=== PATIENT | female | born 2005 | race Caucasian/White ===

== ENCOUNTER 2023-01-03 08:01 | Outpatient (CLI) | payer OTHER, SELFPAY ==
--- NOTE | 2023-01-03 08:15 | CRLHL7_ITS ---
For Patients: As a result of the Century Cures Act, medical imaging exams and procedure reports are released immediately into your electronic medical record. You may view this report before your referring provider. If you have questions, please contact your health care provider. CLINICAL HISTORY: GENERALIZED ABD PAIN COMPARISON: none TECHNIQUE: Real time sawyer scale imaging and color Doppler analysis was performed of the abdomen. FINDINGS: Sonographic imaging demonstrates normal size and uniform echotexture of the liver. The spleen is of normal size. The pancreas appears normal. The proximal abdominal aorta and IVC appear normal. There is no evidence of ascites. The gallbladder is of normal size and there is no evidence of sludge or stones within the gallbladder lumen. The gallbladder wall measures 2 mm in thickness. The common bile duct measures 5 mm in size within the roseline hepatis. The kidneys appear symmetric. The right kidney measures 9.5 cm in length and the left kidney measures 10.2 cm. There is no evidence of a renal calculus or hydronephrosis. IMPRESSION: Normal abdominal ultrasound. Dictated by Aaron Segura MD @ 01/03/2023 8:46:38 AM (Electronically Signed)
== END 2023-01-03 08:02 | disposition home or self-care (01) ==
LOC: US 08:03
PROVIDERS: PCP Family Medicine; Visit Provider Nurse Practitioner Family
DX: R10.84 Generalized abdominal pain (principal); R74.8 Abnormal levels of other serum enzymes
CPT/HCPCS: 76700

== ENCOUNTER 2023-02-28 09:53 | Outpatient (CLI) | payer OTHER, SELFPAY ==
--- NOTE | 2023-02-28 10:00 | CRLHL7_ITS ---
For Patients: As a result of the Century Cures Act, medical imaging exams and procedure reports are released immediately into your electronic medical record. You may view this report before your referring provider. If you have questions, please contact your health care provider. INDICATION: Chronic sinusitis. TECHNIQUE: Noncontrast CT images acquired through the paranasal sinuses. COMPARISON: CT sinus 01/21/2023. FINDINGS: New small air-fluid levels in the maxillary sinuses. The ethmoid infundibula are widely patent. There is minimal maxillary sinus mucosal thickening. [id number] right and minimal left frontal sinus mucosal thickening. Minimal mucosal thickening in the ethmoid air cells. Minimal mucosal thickening in the right sphenoid sinus. The left sphenoid sinus is clear. The sphenoethmoidal recesses are widely patent. There is 3 mm leftward nasal septal deviation. No nasal cavity masses. The mastoid air cells are clear. IMPRESSION: 1. New small air-fluid levels in the maxillary sinuses can be seen in the setting of acute sinusitis. 2. Minimal paranasal sinus mucosal disease. 3. Mild leftward nasal septal deviation. Please note that all CT scans at this facility use dose modulation, iterative reconstruction, and/or weight-based dosing when appropriate to reduce radiation dose to as low as reasonably achievable. Dictated by Louis Roman MD @ 02/28/2023 2:28:04 PM (Electronically Signed)
== END 2023-02-28 09:54 | disposition home or self-care (01) ==
LOC: CT 09:53
PROVIDERS: PCP Family Medicine; Visit Provider Otolaryngology
DX: J32.9 Chronic sinusitis, unspecified (principal); J34.2 Deviated nasal septum
CPT/HCPCS: 70486

== ENCOUNTER 2023-03-29 10:13 | Day surgery (SDC) | payer OTHER, SELFPAY ==
[2023-03-29] VITALS (14 sets, daily range): BP systolic 110–151; BP diastolic 62–96; PULSE 70–99; RESP 12–16; TEMP 36.6–37.2; O2SAT 95–98; BMI 24.0
[2023-03-29] MEDS: LACTATED RINGERS 1000 ML 1,000 ML 100 ML IV (10:25)
[2023-03-29] MEDS: SODIUM CHLORIDE 0.9 % (FLUSH) 10 ML SYRINGE IVF (10:25)
[2023-03-29 10:30] LABS: Ur HCG Qualitative* Negative (Negative)
[2023-03-29] MEDS: OXYMETAZOLINE 0.05% NASAL SPRAY 2 SPRAY NOSTRIL-B (11:57)
[2023-03-29] MEDS: COCAINE HCL 4 % 4 ML SOLUTION NOSTRIL-B (13:10)
[2023-03-29] MEDS: BUPIVACAINE 0.5%/EPINEPHRINE 0.9 MG (30.9 ML) INJECTION (13:10)
[2023-03-29] MEDS: MUPIROCIN 1 GM PACKET 1 APPLIC TOPICAL (13:10)
--- NOTE | 2023-03-29 13:12 | W.ANESCHARGE ---
Anesthesia Charges Start Date/Time Anesthesia Start Date: 03/29/23 Anesthesia Start Time: 12:29 Stop Date/Time Anesthesia Stop Date: 03/29/23 Anesthesia Stop Time: 13:19
--- NOTE | 2023-03-29 13:17 | W.ANESCHARGE ---
Anesthesia Charges Start Date/Time Anesthesia Start Date: 03/29/23 Anesthesia Start Time: 12:29 Stop Date/Time Anesthesia Stop Date: 03/29/23 Anesthesia Stop Time: 13:19
--- NOTE | 2023-03-29 13:19 | W.PM.ENTPROC ---
Procedure Note Date of procedure: 03/29/23 Procedure: Preoperative diagnosis nasal obstruction deviated septum inferior turbinate hypertrophy right middle turbinate hypertrophy adenoid hypertrophy nasal headache, recurrent maxillary sinusitis bilateral, inferior turbinate hypertrophy Postoperative diagnosis same Procedure adenoidectomy, septoplasty, endoscopic right middle turbinate new bullosa resection, submucous resection bilateral inferior turbinate endoscopic bilateral maxillary antrostomies with tissue removal utilizing image guidance Under general trach anesthesia patient was prepped draped usual fashion. The McIvor mouth gag was inserted the tongue retracted forward. The adenoid pad was removed with suction cautery utilizing indirect visualization with laryngeal mirror. There were no submucous clefts. The nose was injected decongested image guidance system registered. A right hemitransfixion incision was made bilateral anterior posterior tunnels were created. A vertical incision was made the cartilage from the bone with a Wendy dissector. The posterior deflected portions of septal bone were resected. Two pieces were trimmed returned to intraseptal space. The hemitransfixion was closed with 2 4-0 chromic sutures Stab incision was made in the anterior of the right inferior turbinate a tunnel created with a [place] dissector. New bone was outfractured a conservative anterior submucous resection performed. The Coblation was used for hemostasis and to cauterize intramurally This was repeated on the left side in identical fashion. The right middle turbinate new bullosa was infractured with a Wendy dissector then crushed with the [facility] forceps. Silastic stents were secured 3-0 nylon and Merocel packing coated in Bactroban was placed in each side the nose. The patient procedure well was taken recovery in satisfactory condition. Blood loss less than 10 mL. Surgeon: Tucker Devlin MD
[2023-03-29] MEDS: OXYCODONE 5 MG TABLET PO (14:34)
--- NOTE | 2023-03-29 15:02 | SUR.PHASEII ---
Patient tolerated ice water, ice chips, apple juice, bread and butter, and applesauce. Patient and father verbalized understanding of discharge instructions and readiness to be discharged home.
== END 2023-03-29 15:26 | disposition home or self-care (01) ==
LOC: OR 10:13
PROVIDERS: Anesthesiology; PCP Family Medicine; Visit Provider Otolaryngology
PROC: (CPT 31231; principal; 2023-03-29 11:30)
PROC: (CPT 42831; 2023-03-29 11:30)
DX: J34.2 Deviated nasal septum (principal); J34.3 Hypertrophy of nasal turbinates; J35.2 Hypertrophy of adenoids; R51.9 Headache, unspecified; J32.0 Chronic maxillary sinusitis
CPT/HCPCS: 42831; 30520; 30140; 31267; 31240; 00160; 81025; 88305; A9270; J0330; J1100; J2405; J2704; J3010; J7120

== ENCOUNTER 2023-06-29 02:19 | Emergency (ER) | payer OTHER, SELFPAY ==
[2023-06-29 02:27] VITALS: BP 131/82; PULSE 125; RESP 20; TEMP 37.4; O2SAT 99; BMI 23.0
[2023-06-29 02:43] LABS: Appearance Urine Clear (Clear); Bilirubin Urine Negative (Negative); Blood Urine Negative (Negative); Color Urine Yellow (Yellow); Glucose Urine Negative (Negative); Ketones Urine Negative (Negative); Leukocyte Esterase Urine Negative (Negative); Nitrite Urine Negative (Negative); Protein Urine Negative (Negative); Specific Gravity Urine 1.015 (1.000-1.030); Urobilinogen Urine 0.2 (0.2-1.0)
[2023-06-29 02:47] LABS: RBC Urine 0-2 (0-2); Squamous Epithelial Cell Urine Few (None-Few); Ur HCG Qualitative* Negative (Negative); WBC Urine 0-2 (0-5)
--- NOTE | 2023-06-29 02:52 | ED.GENADULT ---
HPI - General Adult General Chief complaint: Abdominal Pain Stated complaint: Abdominal Pain Time Seen by Provider: 06/29/23 02:26 Source: patient Mode of arrival: ambulatory Limitations: no limitations History of Present Illness HPI narrative: 17-year-old female with described history of what sounds like irritable bowel syndrome in the past presents the emergency department for evaluation of abdominal pain for the past 6 hours. Pain is diffusely through the abdomen may localized on the bilateral flank a little more. Initially started as some mild dysuria earlier today with no hematuria. No back logical changes. Pain started in the lower mid back around noon, became nauseated around 5:00 p.m.. Tried to lay down after 90 minutes and then woke with worsening pain at around 7:00 p.m. mainly in the bilateral flank may be a little more in the right. She started having some indigestion, stomach cramping and then had several loose stools. She has a supply of Zofran for her irritable bowel symptoms, she took this states that it may have helped the nausea little bit but certainly did not help with the abdominal pain. She did try some ibuprofen about 4-1/2 hours ago with no significant improvement in symptoms. She says she feels weak and a little drowsy. No trauma or injury. No bloody stools, has not vomited. She is on day 5 of an antibiotic for her sinusitis. She believes that she has been on that particular antibiotic in the past and has not had any difficulty tolerating it. No known ill contacts, no pertinent travel. No trauma. Pain is achy, does worsen in crampy waves. Denies chance of . Past medical history notable for depression, anxiety, recurrent sinus infections. Reports that she had sinus surgery in March, . Denies antibiotic allergies. Medication list appropriate per her report. Nonsmoker. ROS notable for the GI, generalized and urinary symptoms as described above only, otherwise denies times 12 systems. Related Data Home Medications Medication Instructions Recorded Confirmed adapalene 0.3 % topical gel 1 applic topical HS PRN 01/15/22 06/29/23 drospirenone 3 mg-ethinyl 1 tab PO DAILY 01/15/22 06/29/23 estradiol 0.03 mg tablet sertraline 100 mg tablet 100 mg PO DAILY 01/15/22 06/29/23 hydroxyzine HCl 25 mg tablet 25 mg PO Q6H PRN 03/27/23 06/29/23 ondansetron 4 mg disintegrating 4 mg PO Q8H PRN 06/29/23 06/29/23 tablet Previous Rx's Medication Instructions Recorded cefuroxime axetil 500 mg tablet 500 mg PO BID #28 tabs 05/01/23 ondansetron 4 mg disintegrating 4 mg PO Q6H PRN nausea and 06/29/23 tablet vomiting #14 tabs Allergies Allergy/AdvReac Type Severity Reaction Status Date / Time No Known Drug Allergies Allergy Verified 06/29/23 02:30 [facility] Medical History Gastroenteritis ?K52.9 - Noninfective gastroenteritis and colitis, unspecified (ICD-10) Chest pain ?R07.9 - Chest pain, unspecified (ICD-10) Generalized anxiety disorder ?F41.1 - Generalized anxiety disorder (ICD-10) Sinusitis ?J32.9 - Chronic sinusitis, unspecified (ICD-10) Social History Smoking Status: Never smoker How often do you have a drink containing alcohol: never AUDIT-C Alcohol total score: 0 Non-prescribed substance use: denies use Caffeine: Yes Exam Const: Vital Signs, click to edit/add: Vital Signs - 24 hr 06/29/23 02:27 Temperature 99.3 F Pulse Rate [Right Pulse Oximeter] 125 H Respiratory Rate 20 Blood Pressure [Ri ght Upper Arm] 131/82 Pulse Oximetry 99 Oxygen Delivery Me thod Room Air Documenting provider has reviewed patient's vital signs: yes General appearance: well kempt HENMT: Common normals: normocephalic, moist oral mucous membranes and oropharynx normal Head and scalp: normocephalic Face and sinus: normal facial exam Eye: Common normals: conjunctivae normal General eye: normal appearance of both eyes Conjunctiva: conjunctiva(e) normal Neck & C-Spine: Common normals: full ROM and no lymphadenopathy Resp: Common normals: normal respiratory effort, no use of accessory muscles and clear to auscultation bilaterally Effort & inspection: able to speak in complete sentences Auscultation: clear to auscultation bilaterally Cardio: Common normals: regular rate, regular rhythm, S1 normal heart sound, S2 normal heart sound and no murmurs Rate: regular rate Rhythm: regular rhythm Heart sounds: S1 normal and S2 normal GI: Common normals: Normal to inspection, nondistended, normoactive bowel sounds present, soft to palpation, no hepatosplenomegaly and no masses Palpation: soft and no hepatosplenomegaly Other: Diffusely tender. It does not really localize any area but seems a little more predominant in the lower abdomen than the upper. : Common normals: no CVA tenderness Bladder/kidney exam: no CVA tenderness Back & Pelvis: Common normals: no CVA tenderness and thoracic and lumbar spine normal to inspection Extremity: Common normals: normal to inspection, normal capillary refill and no pedal edema Psych: Common normals: speech normal Appearance: well kempt Attitude: calm and engaged Speech: normal speech Mood and affect: euthymic mood Insight: insight good Judgement: judgment good Skin: Common normals: no rashes or lesions noted General skin exam: no rashes or lesions noted Course Course ED Course: 17-year-old female with diffuse abdominal pain, no fever, diarrhea and nausea suspicious for gastroenteritis. No rebound tenderness, guarding. She is mildly tachycardic but I think that is multifactorial likely from some early dehydration, anxiety. She is not hypotensive. Differential diagnosis also includes kidney stone, urinary tract infection, pyelonephritis, pancreatitis, bowel obstruction, colitis, appendicitis, gallbladder disease, among others. Recommended basic labs, L of LR, 4 of Zofran and 15 of Toradol. Start with urinalysis and test. Await findings. Reevaluation(s) Time of Reevaluation #1: 03:49 Reevaluation #1: Patient reports that she is not feeling any better but, she has not had any vomiting. She is tolerating water with no difficulty. She has had a formed stool. Labs are very reassuring. I do not recommend CT. Counseled patient on alarm symptoms. This is likely a viral gastroenteritis and will take a few days to resolve. Alarm symptoms reviewed that would warrant ED presentation. Symptomatic control with Tylenol, ibuprofen, Zofran. New prescription for Zofran sent to her pharmacy. Continue antibiotic for now, I do not think this is the main contributing factor but is certainly possible. Return to ED if worsening. Vital Signs Vital signs: Initial Vital Signs Temperature 99.3 F 06/29/23 02:27 Temperature Source Temporal Artery Scan 06/29/23 02:27 Pulse Rate 125 H 06/29/23 02:27 Respiratory Rate 20 06/29/23 02:27 Blood Pressure 131/82 06/29/23 02:27 Blood Pressure Mean 98 06/29/23 02:27 Blood Pressure Position Sitting 06/29/23 02:27 Pulse Oximetry 99 06/29/23 02:27 Oxygen Delivery Method Room Air 06/29/23 02:27 Vital Signs Temperature 99.3 F 06/29/23 02:27 Pulse Rate 125 H 06/29/23 02:27 Respiratory Rate 20 06/29/23 02:27 Blood Pressure 131/82 06/29/23 02:27 Pulse Oximetry 99 06/29/23 02:27 Oxygen Delivery Method Room Air 06/29/23 02:27 Temperature 99.3 F 06/29/23 02:27 Pulse Rate 125 H 06/29/23 02:27 Respiratory Rate 20 06/29/23 02:27 Blood Pressure 131/82 06/29/23 02:27 Pulse Oximetry 99 06/29/23 02:27 Oxygen Delivery Method Room Air 06/29/23 02:27 Medications Administered Medications: Generic Name Dose Route Start Last Admin Trade Name Freq PRN Reason Stop Dose Admin Lactated Ringer's 1,000 mls @ 1,000 mls/hr 06/29/23 02:51 06/29/23 03:03 Lactated Ringers 1000 Ml IV 06/29/23 03:50 1,000 mls/hr .Q1H ONE Administration Ketorolac Tromethamine 15 mg 06/29/23 02:51 06/29/23 03:03 Ketorolac 15 Mg/Ml Inj IVP 06/29/23 02:52 15 mg ONCE ONE Administration Ondansetron HCl 4 mg 06/29/23 02:51 06/29/23 03:03 Ondansetron 2 Mg/Ml Inj IVP 06/29/23 02:52 4 mg ONCE ONE Administration Medical Decision Making Lab Data Lab results reviewed: Yes I reviewed the patient's lab results Lab results narrative: Labs very reassuring. No leukocytosis, normal CRP. Normal electrolytes, enzymes, kidney function, urinalysis. Stool was formed, therefore C diff assay will not be run. Labs: Lab Results 06/29/23 06/29/23 Range/Units 02:25 02:55 WBC 10.49 (4.50-11.00) K/uL RBC 4.73 (4.00-5.20) m/uL Hgb 13.3 (12.0-16.0) gm/dL Hct 40.5 (33.0-51.0) % MCV 86 (80-100) fL MCH 28 (26-34) pg MCHC 33 (32-36) gm/dL RDW Coeff of Lorne 13.3 (11.5-15.5) % Plt Count 279 (140-440) K/uL Neut % (Auto) 91.2 H (42.0-72.0) % Lymph % (Auto) 3.9 L (20-44) % [place] % (Auto) 4.5 (0.0-11.0) % Eos % (Auto) 0.3 (0.0-7.0) % Baso % (Auto) 0.0 (0.0-3.0) % Neut # (Auto) 9.60 H (1.7-7.0) K/uL Lymph # (Auto) 0.40 L (0.90-2.90) K/uL Garland # (Auto) 0.50 (0.00-0.90) K/UL Eos # (Auto) 0.03 (0.00-0.50) K/uL Baso # (Auto) 0.00 (0.00-0.30) K/uL Abs Immat Gran (auto) 0.01 (0.00-0.30) K/uL Imm/Tot Granulo (auto) 0.1 % Sodium 138 (135-149) mmol/L Potassium 3.9 (3.6-5.1) mmol/L Chloride 105 (96-114) mmol/L Carbon Dioxide 27 (20-32) mmol/L Anion Gap 6 L (7-15) mEq/L BUN 11 (5-24) mg/dL Creatinine 0.6 (0.6-1.2) mg/dL Estimated Creat Clear 163.08 Estimated GFR 133 ml/min Glucose 113 (60-115) mg/dL Calcium 9.4 (8.7-10.8) mg/dL Total Bilirubin 0.5 (0.1-1.5) mg/dL AST 39 H (12-35) U/L ALT 37 H (4-35) U/L Alkaline Phosphatase 104 (40-150) U/L C-Reactive Protein 0.5 (0.5-1.0) mg/dL Total Protein 7.2 (6.0-8.3) g/dL Albumin 4.3 (3.3-5.0) g/dL Lipase 42 (23-300) U/L Urine Color Yellow (Yellow) Urine Appearance Clear (Clear) Urine pH 7.0 (5.0-8.5) Ur Specific [place] 1.015 (1.000-1.030) Urine Protein Negative (Negative) Urine Glucose (UA) Negative (Negative) Urine Ketones Negative (Negative) Urine Blood Negative (Negative) Urine Nitrite Negative (Negative) Urine Bilirubin Negative (Negative) Urine Urobilinogen 0.2 (0.2-1.0) Ur Leukocyte Esterase Negative (Negative) Urine RBC 0-2 (0-2) Urine WBC 0-2 (0-5) Ur Squamous Epith Cells Few (None-Few) Urine Bacteria None (None) Urine HCG, Qual Negative (Negative) Discharge Plan Discharge Clinical Impression: Gastroenteritis Patient Disposition: Home w/ Parent or Adult Condition: Improved Instructions: Gastroenteritis (DC) Additional Instructions: As we discussed, your symptoms are either from gastroenteritis, also known as a stomach flu or side effects from your antibiotic. Based on the fact the of tolerated this antibiotic in the past per your report, I suspect that it is more likely a viral infection. As we discussed, your labs do not show any inflammation, dehydration, electrolyte problems, pancreatitis, anemia, bladder infection or other worrisome findings. This is great news. Your stool sample was formed, therefore you can not have C diff. We do not need for you to leave another sample. I am sending a prescription for more Zofran. Use this to help manage the nausea and vomiting. Take this automatically every 6 hours for the next 24 hours. Your next dose will be at 9:00 a.m. this morning. Drink lots of fluids, slowly advance Foods as you are able. Take Tylenol 1000 mg every 6 hours and or ibuprofen 600 mg every 6 hours as needed for discomfort. Low-grade fevers under 100.4 are very common. Symptoms are likely to last 48-72 hours more. Come to the emergency department if you have bloody vomit, bloody stools, are unable to hold down any liquids even with medication for over 16 hours, have severe unrelenting pain or are so weak you cannot get from your bed to the bathroom. For now, I think it is best to keep taking your antibiotic but if you notice significant worsening in relation to your dosing, contact the prescribing provider for an alternative. Activity Level: Activity as Tolerated Discharge Diet: Regular Prescriptions: New ondansetron 4 mg tablet,disintegrating 4 mg PO Q6H PRN (Reason: nausea and vomiting) Qty: 14 0RF No Action cefuroxime axetil 500 mg tablet 500 mg PO BID Qty: 28 2RF sertraline 100 mg tablet 100 mg PO DAILY Rx Instructions: take 1 1/2 tabs every day drospirenone-ethinyl estradiol 3-0.03 mg tablet 1 tab PO DAILY adapalene 0.3 % gel 1 applic topical HS PRN Patient Comments: APPLY A SMALL AMOUNT TO FACE EVERY OTHER NIGHT, INCREASING TO NIGHTLY TOLERATED. MOISTURIZE AFTER. hydroxyzine HCl 25 mg tablet 25 mg PO Q6H PRN ondansetron 4 mg tablet,disintegrating 4 mg PO Q8H PRN Follow Up/Referrals: Kathleen Hernandez DO [Primary Care Provider] - Stand Alone Forms: [facility] Info Instructions
[2023-06-29] MEDS: KETOROLAC 15 MG/ML inj IVP (03:03)
[2023-06-29] MEDS: LACTATED RINGERS 1000 ML 1,000 ML IV (03:03)
[2023-06-29] MEDS: ONDANSETRON 2 MG/ML inj 4 MG IVP (03:03)
[2023-06-29 03:12] LABS: Eosinophils Absolute Auto 0.03 K/uL (0.00-0.50); Eosinophils Percent Auto 0.3 % (0.0-7.0); Hematocrit 40.5 % (33.0-51.0); Hemoglobin* 13.3 gm/dL (12.0-16.0); Immature Granulocytes Abs Auto 0.01 K/uL (0.00-0.30); Immature Granulocytes Pct Auto 0.1 %; Lymphocytes Percent Auto 3.9 % (20-44); Mean Corpuscular HGB Conc 33 gm/dL (32-36); Mean Corpuscular Hemoglobin 28 pg (26-34); Mean Corpuscular Volume 86 fL (80-100); Monocytes Percent Auto 4.5 % (0.0-11.0); Neutrophils Percent Auto 91.2 % (42.0-72.0); Platelet Count* 279 K/uL (140-440); RDW Coefficient of Variation % 13.3 % (11.5-15.5); Red Blood Count 4.73 m/uL (4.00-5.20); White Blood Count* 10.49 K/uL (4.50-11.00)
[2023-06-29 03:16] LABS: Slide Review Reflex No
[2023-06-29 03:25] LABS: Albumin* 4.3 g/dL (3.3-5.0); Chloride* 105 mmol/L (96-114); Potassium* 3.9 mmol/L (3.6-5.1); Sodium* 138 mmol/L (135-149)
[2023-06-29 03:27] LABS: Creatinine* 0.6 mg/dL (0.6-1.2); Est. Creatinine Clearance* 163.08; Estimated Glomerular Filt Rate 133 ml/min
[2023-06-29 03:28] LABS: Alanine Aminotransferase* 37 U/L (4-35); Alkaline Phosphatase* 104 U/L (40-150); Anion Gap 6 mEq/L (7-15); Aspartate Amino Transferase* 39 U/L (12-35); Bilirubin Total* 0.5 mg/dL (0.1-1.5); Blood Urea Nitrogen* 11 mg/dL (5-24); Calcium* 9.4 mg/dL (8.7-10.8); Carbon Dioxide* 27 mmol/L (20-32); Glucose* 113 mg/dL (60-115); Lipase* 42 U/L (23-300); Total Protein* 7.2 g/dL (6.0-8.3)
[2023-06-29 03:31] LABS: C Reactive Protein* 0.5 mg/dL (0.5-1.0)
[2023-06-29 03:52] LABS: PCR FLU A Negative PCR FLU A (Negative); PCR FLU B Negative PCR FLU B (Negative); PCR RSV Negative PCR RSV (Negative); SARS PCR* Negative SARS-CoV-2 (Negative)
[2023-06-29 04:05] VITALS: BP 125/74; PULSE 99; RESP 20; TEMP 36.8; O2SAT 99
[2023-06-29 04:07] VITALS: TEMP 36.8
[2023-06-29 04:08] VITALS: BP 125/74; PULSE 99; RESP 20; TEMP 36.8
== END 2023-06-29 04:08 | disposition home or self-care (01) ==
PROVIDERS: Emergency Provider Family Medicine; PCP Family Medicine
DX: K52.9 Noninfective gastroenteritis and colitis, unspecified (principal)
CPT/HCPCS: 36415; 80053; 81001; 81025; 83690; 85025; 86140; 87493; 87631; 96361; 96374; 96375; 99284; J1885; J2405; J7120